=== PATIENT | female | born 1975 | race Caucasian/White ===

== ENCOUNTER 2021-06-01 08:36 | Emergency (ER) | payer BC ==
[2021-06-01] MEDS ORDERED: Ketorolac Tromethamine 30 MG/ML VIAL ONE (08:53)
[2021-06-01] MEDS ORDERED: Boostrix 0.5 ML (Tdap) VIAL ONE (08:53)
== END 2021-06-01 09:10 | disposition home or self-care (01) ==
LOC: NAV ERS 08:36
DX: T63.481A Toxic effect of venom of other arthropod, accidental (unintentional), initial encounter (principal); Z23 Encounter for immunization
CPT/HCPCS: 90471; 90715; 96372; J1885